=== PATIENT | male | born 1975 | race Caucasian/White ===

== ENCOUNTER 2020-11-12 19:00 | Emergency (ER) | payer SELFPAY ==
[~2020-11-12] VITALS: Ht 180.3 cm; Wt 91.0 kg
[2020-11-12] MEDS ORDERED: HYDROCODONE/ACETAMINOPHEN 5/325MG TABLET PO ONE (22:45)
[2020-11-12 23:17] VITALS: BP 130/92
[2020-11-13] MEDS ORDERED: LIDOCAINE HCL 1% 20ML VIAL (Pyxis) INJ INFIL NR
== END 2020-11-13 01:14 | disposition home or self-care (01) ==
LOC: ER 19:00
DX: S62.396A Other fracture of fifth metacarpal bone, right hand, initial encounter for closed fracture (principal); W22.8XXA Striking against or struck by other objects, initial encounter; Y93.89 Activity, other specified; Y92.9 Unspecified place or not applicable; Z87.442 Personal history of urinary calculi; Z98.890 Other specified postprocedural states
CPT/HCPCS: 26700; 73130; 99152; 99285

== ENCOUNTER 2021-09-16 21:00 | Emergency (ER) | payer MEDICAID ==
[~2021-09-16] VITALS: Ht 180.3 cm; Wt 941.0 kg
[2021-09-16 22:19] LABS: CLARITY URINE CLOUDY (CLEAR); COLOR URINE YELLOW (YELLOW); KETONES URINE TRACE (NEGATIVE); LEUKOCYTE ESTERASE URINE TRACE (NEGATIVE); NITRITE URINE NEGATIVE (NEGATIVE); OCCULT BLOOD URINE 3+ (NEGATIVE); PROTEIN URINE TRACE (NEGATIVE); SPECIFIC GRAVITY URINE 1.029 (1.005-1.030)
[2021-09-17] MEDS ORDERED: ACETAMINOPHEN 325MG TABLET PO ONE (05:15)
[2021-09-17] MEDS ORDERED: KETOROLAC 15MG/ML VIAL IV ONE (05:15)
[2021-09-17] MEDS ORDERED: ONDANSETRON 4MG ODT PO NR (05:30)
[2021-09-17] MEDS ORDERED: HYDROCODONE/ACETAMINOPHEN 5/325MG TABLET PO NR (05:30)
[2021-09-17] MEDS ORDERED: KETOROLAC 30MG/ML VIAL IM NR (05:30)
[2021-09-17 05:55] LABS: CHLORIDE 105 mEq/L (98-107)
[2021-09-17] MEDS ORDERED: HYDR-4001 MT (07:11)
[2021-09-17] MEDS ORDERED: TAMS-11 MT (07:12)
[2021-09-17] MEDS ORDERED: ONDA4TAB11 PO (07:12)
[2021-09-17 08:32] VITALS: BP 136/82
== END 2021-09-17 09:05 | disposition home or self-care (01) ==
LOC: ER 21:00
DX: N20.0 Calculus of kidney (principal); Z87.442 Personal history of urinary calculi
CPT/HCPCS: 36415; 80053; 81003; 96372; 99283; J1885; Q0162